=== PATIENT | female | born 1935 | race Native Hawaiian/Other Pacific Islander ===

== ENCOUNTER 2016-08-06 12:58 | Outpatient (CLI) | payer MEDICARE, OTHER | END 2016-08-06 12:59 | disposition home or self-care (01) | DX: N05.9 Unspecified nephritic syndrome with unspecified morphologic changes (principal); D70.9 Neutropenia, unspecified; D63.1 Anemia in chronic kidney disease ==

== ENCOUNTER 2016-09-05 10:46 | Outpatient (CLI) | payer MEDICARE, OTHER | END 2016-09-05 10:47 | disposition critical access hospital (66) | DX: R06.02 Shortness of breath (principal) | CPT/HCPCS: A0425; A0427 ==

== ENCOUNTER 2016-09-05 11:06 | Emergency (ER) | payer MEDICARE, OTHER ==
[2016-09-05] MEDS ORDERED: IPRATROPIUM/ALBUTEROL 3 ML NEB INH STA (13:30)
[2016-09-05] MEDS ORDERED: methylPREDNISolone SUCCINATE 125 MG/2 ML VIAL IVP STA (13:30)
[2016-09-05] MEDS ORDERED: methylPREDNISolone SUCCINATE 125 MG/2 ML VIAL IVP ONE (13:34)
[2016-09-05] MEDS ORDERED: DOXYCYCLINE 100 MG TABLET PO STA (15:49)
[2016-09-05] MEDS ORDERED: cefTRIAXone 1 GM in SODIUM CHLORIDE 0.9% MINIBAG 100 ML IV STA (15:49)
[2016-09-05] MEDS ORDERED: DOXYCYCLINE 100 MG TABLET PO ONE (15:51)
[2016-09-05] MEDS ORDERED: cefTRIAXone 1 GM VIAL ONE (15:52)
== END 2016-09-05 17:21 | disposition home or self-care (01) ==
DX: J44.1 Chronic obstructive pulmonary disease with (acute) exacerbation (principal); Z99.81 Dependence on supplemental oxygen; I10 Essential (primary) hypertension; E78.00 Pure hypercholesterolemia, unspecified; M19.90 Unspecified osteoarthritis, unspecified site; M06.9 Rheumatoid arthritis, unspecified; M10.9 Gout, unspecified; Z87.442 Personal history of urinary calculi; Z79.82 Long term (current) use of aspirin; Z87.891 Personal history of nicotine dependence
CPT/HCPCS: 36415; 71020; 80053; 83690; 85025; 87040; 94640; 96374; 96375; 99284; A9270; J7620

== ENCOUNTER 2016-09-19 08:00 | Outpatient (CLI) | payer MEDICARE, OTHER | END 2016-09-19 08:01 | disposition home or self-care (01) | DX: N05.9 Unspecified nephritic syndrome with unspecified morphologic changes (principal); I50.9 Heart failure, unspecified; M10.00 Idiopathic gout, unspecified site ==

== ENCOUNTER 2016-11-27 14:25 | Outpatient (CLI) | payer MEDICARE, OTHER ==
[2016-11-27 18:53] LABS: HCT - HEMATOCRIT 32.9 % (37.0-47.0); RED BLOOD COUNT 3.12 10^6/uL (4.20-5.40)
[2016-11-27 18:55] LABS: HGB - HEMOGLOBIN 10.7 g/dL (12.0-16.0); MEAN CORPUSCULAR HEMOGLOBIN 34.4 pg (27.0-31.0); MEAN CORPUSCULAR HGB CONC 32.5 g/dL (32.0-36.0); MEAN CORPUSCULAR VOLUME 105.6 fL (81.0-99.0); MEAN PLATELET VOLUME 9.8 fL (7.9-10.8); RED CELL DISTRIBUTION WIDTH 16.9 % (12.0-15.0); WHITE BLOOD COUNT 15.3 x10^3/uL (4.8-10.8)
[2016-11-27 19:15] LABS: CALCIUM 7.1 mg/dL (8.5-10.3); CREATININE 3.2 mg/dL (0.4-1.0); POTASSIUM 4.3 mmol/L (3.5-5.0)
== END 2016-11-27 14:26 | disposition home or self-care (01) ==
LOC: LAB.WCP 14:25
PROVIDERS: ATTEND Internal Medicine Nephrology
DX: N05.9 Unspecified nephritic syndrome with unspecified morphologic changes (principal); D50.0 Iron deficiency anemia secondary to blood loss (chronic)
CPT/HCPCS: 36415; 80048; 82728; 83540; 84466

== ENCOUNTER 2017-01-16 11:28 | Outpatient (CLI) | payer MEDICARE, OTHER ==
[2017-01-16 19:17] LABS: HCT - HEMATOCRIT 30.8 % (37.0-47.0); HGB - HEMOGLOBIN 10.1 g/dL (12.0-16.0); MEAN CORPUSCULAR HEMOGLOBIN 36.1 pg (27.0-31.0); MEAN CORPUSCULAR HGB CONC 32.6 g/dL (32.0-36.0); MEAN CORPUSCULAR VOLUME 110.6 fL (81.0-99.0); MEAN PLATELET VOLUME 8.8 fL (7.9-10.8); RED BLOOD COUNT 2.79 10^6/uL (4.20-5.40); RED CELL DISTRIBUTION WIDTH 14.9 % (12.0-15.0)
[2017-01-16 19:33] LABS: CALCIUM 8.2 mg/dL (8.5-10.3); CREATININE 2.6 mg/dL (0.4-1.0); POTASSIUM 3.6 mmol/L (3.5-5.0)
== END 2017-01-16 11:29 | disposition home or self-care (01) ==
LOC: LAB.WCP 11:28
PROVIDERS: ATTEND Internal Medicine Nephrology
DX: N05.9 Unspecified nephritic syndrome with unspecified morphologic changes (principal); D70.9 Neutropenia, unspecified
CPT/HCPCS: 36415; 80048

== ENCOUNTER 2017-01-23 11:17 | Outpatient (CLI) | payer MEDICARE, OTHER ==
--- NOTE | 2017-01-23 12:41 | XRAY Report ---
TWO-VIEW CHEST: 01/23/2017 CLINICAL INDICATION: Dyspnea, heart failure, stage IV kidney disease. COMPARISON: 09/05/2016 FINDINGS: Frontal and lateral views of the chest demonstrate a normal cardiac silhouette. Postopera tive changes in the left chest are stable. The lungs remain clear. No effusion or pneumothorax is p resent. Emphysematous changes are stable. IMPRESSION: NO EVIDENCE OF ACUTE CARDIOPULMONARY DISEASE. JOB #: [id number] EXT JOB #:[id number]
== END 2017-01-23 11:18 | disposition home or self-care (01) ==
LOC: DI 11:17
PROVIDERS: ATTEND Internal Medicine Nephrology
DX: I50.9 Heart failure, unspecified (principal)
CPT/HCPCS: 71020

== ENCOUNTER 2017-02-17 08:25 | Outpatient (CLI) | payer MEDICARE, OTHER ==
[2017-02-17 13:53] LABS: HGB - HEMOGLOBIN 10.4 g/dL (12.0-16.0); RED CELL DISTRIBUTION WIDTH 14.4 % (12.0-15.0)
[2017-02-17 13:54] LABS: HCT - HEMATOCRIT 31.1 % (37.0-47.0); MEAN CORPUSCULAR HEMOGLOBIN 35.9 pg (27.0-31.0); MEAN CORPUSCULAR HGB CONC 33.4 g/dL (32.0-36.0); MEAN CORPUSCULAR VOLUME 107.5 fL (81.0-99.0); MEAN PLATELET VOLUME 9.8 fL (7.9-10.8); RED BLOOD COUNT 2.9 10^6/uL (4.20-5.40)
[2017-02-17 14:35] LABS: CALCIUM 7.7 mg/dL (8.5-10.3); PHOSPHORUS 4.8 mg/dL (2.5-4.6); POTASSIUM 3.3 mmol/L (3.5-5.0)
== END 2017-02-17 08:26 | disposition home or self-care (01) ==
LOC: LAB.WCP 08:25
PROVIDERS: ATTEND Internal Medicine Nephrology
DX: N05.9 Unspecified nephritic syndrome with unspecified morphologic changes (principal); I50.9 Heart failure, unspecified; D70.9 Neutropenia, unspecified; D63.1 Anemia in chronic kidney disease; B19.10 Unspecified viral hepatitis B without hepatic coma; E83.30 Disorder of phosphorus metabolism, unspecified
CPT/HCPCS: 36415; 80048; 83880; 83970; 84100; 86317; 86704; 86803; 87340

== ENCOUNTER 2017-03-11 08:00 | Outpatient (CLI) | payer MEDICARE, OTHER | END 2017-03-11 08:01 | disposition home or self-care (01) | LOC: LAB.WCP 08:00 | PROVIDERS: ATTEND Physician Assistant Medical | DX: N93.9 Abnormal uterine and vaginal bleeding, unspecified (principal); N39.0 Urinary tract infection, site not specified | CPT/HCPCS: 84300; 87086 ==

== ENCOUNTER 2017-03-17 09:30 | Outpatient (CLI) | payer MEDICARE, OTHER ==
[2017-03-17 13:00] LABS: CALCIUM 7.8 mg/dL (8.5-10.3); CREATININE 2.7 mg/dL (0.4-1.0)
== END 2017-03-17 09:31 | disposition home or self-care (01) ==
LOC: LAB.WCP 09:30
PROVIDERS: ATTEND Internal Medicine Nephrology
DX: N05.9 Unspecified nephritic syndrome with unspecified morphologic changes (principal)
CPT/HCPCS: 36415; 80048

== ENCOUNTER 2017-06-29 08:00 | Outpatient (CLI) | payer MEDICARE, OTHER ==
[2017-06-29 18:55] LABS: HGB - HEMOGLOBIN 8.2 g/dL (12.0-16.0); MEAN CORPUSCULAR HEMOGLOBIN 34.7 pg (27.0-31.0); MEAN CORPUSCULAR HGB CONC 31.6 g/dL (32.0-36.0); MEAN PLATELET VOLUME 8.9 fL (7.9-10.8); RED BLOOD COUNT 2.37 10^6/uL (4.20-5.40); RED CELL DISTRIBUTION WIDTH 15.2 % (12.0-15.0); WHITE BLOOD COUNT 10.8 x10^3/uL (4.8-10.8)
[2017-06-29 18:57] LABS: MEAN CORPUSCULAR VOLUME 109.8 fL (81.0-99.0)
[2017-06-29 19:31] LABS: CALCIUM 7.4 mg/dL (8.5-10.3)
== END 2017-06-29 08:01 | disposition home or self-care (01) ==
LOC: LAB.WCP 08:00
PROVIDERS: ATTEND Internal Medicine Nephrology
DX: N05.9 Unspecified nephritic syndrome with unspecified morphologic changes (principal); D70.9 Neutropenia, unspecified; D63.1 Anemia in chronic kidney disease
CPT/HCPCS: 36415; 80048

== ENCOUNTER 2017-08-13 12:41 | Emergency (ER) | payer MEDICARE, OTHER ==
--- NOTE | 2017-08-13 13:26 | ED Physician Documentation ---
PD HPI DYSPNEA - Stated complaint Stated Complaint: SOA - History obtained from History obtained from: Patient - History of Present Illness Timing - onset: How many days ago (She has had several days of progressive dyspnea, general weakness and upon pointed questioning also states some dark soft stools. She has a history of COPD and anemia. She thought she was having some exacerbation of her COPD and noticed a significant wheezing and trouble breathing this morning. She improved en route by EMS with a nebulizer treatment. She still has general weakness however.) Timing - onset during: Light activity Timing - duration: Days Timing - details: Gradual onset, Still present Inciting event(s): No: Out of meds, URI Improved by: O2, Inhaler/neb Worsened by: Exertion. No: Laying flat, Coughing Associated symptoms: Wheezing. No: Fever, Cough, Chest pain / discomfort, Bilateral edema Similar symptoms before: Diagnosis (COPD) Recently seen: Not recently seen Review of Systems Constitutional: denies: Fever, Chills, Myalgias Nose: denies: Rhinorrhea / runny nose, Congestion Throat: denies: Sore throat Cardiac: denies: Chest pain / pressure, Palpitations, Pedal edema, Calf pain Respiratory: reports: Dyspnea, Cough, Wheezing GI: reports: Diarrhea, Bloody / black stool. denies: Abdominal Pain, Nausea, Vomiting, Hematemesis : denies: Dysuria, Frequency Skin: denies: Rash, Lesions Musculoskeletal: denies: Neck pain, Back pain Neurologic: reports: Generalized weakness, Near syncope (yesterday and today, posturally). 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 Cardiovascular: AAA, Other HEENT: Cataracts - Present Medications Home Medications: Ambulatory Orders Medication Instructions Recorded Confirmed Albuterol 2.5 mg INH Q4H PRN 08/13/17 08/13/17 Albuterol Sulfate [Proair Hfa 1 - 2 puffs INH Q4H PRN 08/13/17 08/13/17 Inhaler] Allopurinol [Allopurinol] 150 mg PO QPM 08/13/17 08/13/17 Ascorbic Acid 500 mg PO DAILY 08/13/17 08/13/17 Aspirin [Aspirin EC] 162 mg PO DAILY 08/13/17 08/13/17 Felodipine [Felodipine ER] 5 mg PO 1200 08/13/17 08/13/17 Furosemide 40 mg PO 1400 08/13/17 08/13/17 Furosemide [Lasix] 60 mg PO 0800 08/13/17 08/13/17 Ipratropium/Albuterol Sulfate 3 ml INH QID 08/13/17 08/13/17 [Iprat-Albut 0.5-3(2.5) mg/3 ml] Latanoprost [Xalatan] 1 drops EACHEYE QPM 08/13/17 08/13/17 Potassium Chloride [Micro-K] 10 meq PO 0800 08/13/17 08/13/17 Simvastatin [Simvastatin] 20 mg PO QPM 08/13/17 08/13/17 Timolol 0.5% Ophth Drops [Timoptic 1 drops EACHEYE BID 08/13/17 08/13/17 0.5% Ophth Drops] predniSONE [Prednisone] 10 mg PO DAILYWM 08/13/17 08/13/17 - Allergies Allergies/Adverse Reactions: Allergies Allergy/AdvReac Type Severity Reaction Status Date / Time amoxicillin trihydrate * Allergy unknown Verified 08/13/17 13:32 [From Trimox] Penicillins Allergy Hives Verified 08/13/17 13:32 - Social History Does the pt smoke?: No Smoking Status: Former smoker Does the pt drink ETOH?: Yes Does the pt have substance abuse?: No - Immunizations Immunizations are current?: No Immunizations: TDAP >10years/unknown - POLST Patient has POLST: No PD ED PE NORMAL - Vitals Vital signs reviewed: Yes (Low BP initially) - General General: Alert and oriented X 3, No acute distress, Well developed/nourished - HEENT HEENT: Ears normal, Pharynx benign - Neck Neck: Supple, no meningeal sign, No adenopathy - Cardiac Cardiac: RRR, No murmur - Respiratory Respiratory: Clear bilaterally - Abdomen Abdomen: Normal bowel sounds, Soft, Non tender, Non distended, No organomegaly - Female Female : Deferred - Rectal Rectal: Other (Soft stool in the vault, dark colored/black, which is markedly guiac positive. ) - Back Back: No CVA TTP - Derm Derm: Normal color - Extremities Extremities: No deformity, No tenderness to palpate - Neuro Neuro: Alert and oriented X 3, No motor deficit, Normal speech Eye Opening: Spontaneous Motor: Obeys Commands Verbal: Oriented GCS Score: 15 - Psych Psych: Normal mood Results - Vitals Vitals: Vital Signs - 24 hr 08/13/17 08/13/17 08/13/17 12:41 15:18 16:17 Temperature 36.5 C 36.4 C L Heart Rate 86 81 83 Respiratory 24 25 H 20 Rate Blood Pressure 71/53 L 72/52 L 85/62 L O2 Saturation 100 100 08/13/17 08/13/17 08/13/17 16:24 16:26 16:31 Temperature 36.4 C L 36.4 C L Heart Rate 83 82 86 Respiratory 24 20 21 Rate Blood Pressure 85/62 L 85/62 L 102/85 H O2 Saturation 100 08/13/17 08/13/17 08/13/17 16:36 16:44 17:32 Temperature 37.1 C 36.7 C 36.9 C Heart Rate 83 82 88 Respiratory 23 24 21 Rate Blood Pressure 89/70 L 109/73 95/65 O2 Saturation 08/13/17 08/13/17 17:40 17:45 Temperature 36.7 C 36.7 C Heart Rate 91 Respiratory 23 Rate Blood Pressure 103/89 H 115/93 H O2 Saturation Oxygen O2 Source [Without Activity] Nasal cannula O2 Source Nasal cannula Oxygen Flow Rate 2 - Labs Labs: Laboratory Tests 08/13/17 08/13/17 08/13/17 13:40 13:40 13:40 WBC 12.6 H RBC 1.19 L Hgb 3.8 L* Hct 12.1 L* MCV 101.2 H MCH 32.3 H MCHC 31.9 L RDW 17.9 H Plt Count 330 MPV 8.9 Neut # 11.0 H Lymph # 0.7 L [place] # 0.7 Eos # 0.0 Baso # 0.1 Absolute Nucleated RBC 0.42 Nucleated RBC % 3.4 Manual Slide Review Indicated RBC Morph Micro Appear 1+ HYPOCHROMASIA Sodium 136 Potassium 3.5 Chloride 98 L Carbon Dioxide 23 Anion Gap 15.0 H BUN 93 H* Creatinine 2.6 H Estimated GFR (MDRD) 18 L Glucose 112 H Lactic Acid 2.0 Calcium 7.2 L Magnesium Total Bilirubin 0.5 AST 22 ALT 15 Alkaline Phosphatase 46 B-Natriuretic Peptide Total Protein 5.6 L Albumin 3.2 Globulin 2.4 Albumin/Globulin Ratio 1.3 Lipase 24 Blood Type Antibody Screen Crossmatch IS Only 08/13/17 08/13/17 08/13/17 13:46 14:48 14:48 WBC RBC Hgb Hct MCV MCH MCHC RDW Plt Count MPV Neut # Lymph # [place] # Eos # Baso # Absolute Nucleated RBC Nucleated RBC % Manual Slide Review RBC Morph Micro Appear Sodium Potassium Chloride Carbon Dioxide Anion Gap BUN Creatinine Estimated GFR (MDRD) Glucose Lactic Acid Calcium Magnesium 1.6 L Total Bilirubin AST ALT Alkaline Phosphatase B-Natriuretic Peptide 294 H Total Protein Albumin Globulin Albumin/Globulin Ratio Lipase Blood Type O POSITIVE Antibody Screen NEGATIVE Crossmatch IS Only See Detail 08/13/17 14:48 WBC RBC Hgb 4.0 L* Hct 13.0 L* MCV MCH MCHC RDW Plt Count MPV Neut # Lymph # [place] # Eos # Baso # Absolute Nucleated RBC Nucleated RBC % Manual Slide Review RBC Morph Micro Appear Sodium Potassium Chloride Carbon Dioxide Anion Gap BUN Creatinine Estimated GFR (MDRD) Glucose Lactic Acid Calcium Magnesium Total Bilirubin AST ALT Alkaline Phosphatase B-Natriuretic Peptide Total Protein Albumin Globulin Albumin/Globulin Ratio Lipase Blood Type Antibody Screen Crossmatch IS Only PD MEDICAL DECISION MAKING - ED course Complexity details: reviewed old records, reviewed results (She has profound anemia. Her hemoglobin is up 4 down from 8 a month ago and baseline around 8- 10. Her kidney function is creatinine 2.6 which is about at her baseline. She is guaiac positive stools. We will transfuse with blood. I did give a fluid bolus small amount to increase blood pressure but did want did not want to use up her available space with fluids but rather go with blood products that would help her more. Once the blood was hanging her blood pressure improved quite readily and is now 110 systolic. Her color is better and she is breathing comfortably. She also had been improved with the nebulizer treatment 2. RICU is full here and she will need transferring. [facility] did have space available in their ICU and Dr. Patterson accepted transfer. The patient is stable for transfer and will be transferred by ground ALS.), considered differential, d /w patient Departure - Departure Disposition: 02 Transfer Acute Care Hosp Clinical Impression: COPD exacerbation Dyspnea Qualifiers: Dyspnea type: shortness of breath Qualified Code(s): R06.02 - Shortness of breath Profound anemia Qualifiers: Anemia type: unspecified type Qualified Code(s): D64.9 - Anemia, unspecified GI bleeding Qualifiers: GI bleed type/associated pathology: unspecified gastrointestinal hemorrhage type Qualified Code(s): K92.2 - Gastrointestinal hemorrhage, unspecified Chronic renal insufficiency Qualifiers: Chronic kidney disease stage: unspecified stage Qualified Code(s): N18.9 - Chronic kidney disease, unspecified Condition: Stable Record reviewed to determine appropriate education?: Yes Discharge Date/Time: 08/13/17 17:50
[2017-08-13 14:03] LABS: BASOPHILS # (AUTO) 0.1 10^3/uL (0.0-0.1); BASOPHILS % (AUTO) 0.4 %; EOSINOPHILS % (AUTO) 0.3 %; LYMPHOCYTES # (AUTO) 0.7 10^3/uL (1.5-3.5); LYMPHOCYTES % (AUTO) 5.7 %; MEAN CORPUSCULAR HEMOGLOBIN 32.3 pg (27.0-31.0); MEAN CORPUSCULAR HGB CONC 31.9 g/dL (32.0-36.0); MEAN CORPUSCULAR VOLUME 101.2 fL (81.0-99.0); MEAN PLATELET VOLUME 8.9 fL (7.9-10.8); MONOCYTES # (AUTO) 0.7 10^3/uL (0.0-1.0); MONOCYTES % (AUTO) 5.7 %; NEUTROPHILS % (AUTO) 87.9 %; PLT - PLATELET COUNT 330 10^3/uL (130-450); RED BLOOD COUNT 1.19 10^6/uL (4.20-5.40); RED CELL DISTRIBUTION WIDTH 17.9 % (12.0-15.0); WHITE BLOOD COUNT 12.6 x10^3/uL (4.8-10.8)
[2017-08-13 14:05] LABS: HGB - HEMOGLOBIN 3.8 g/dL (12.0-16.0)
[2017-08-13] MEDS ORDERED: IPRATROPIUM/ALBUTEROL 3 ML NEB INH STA (14:06)
[2017-08-13] MEDS ORDERED: SODIUM CHLORIDE 0.9% 500 ML IV ONE ×2 (14:23→15:04)
[2017-08-13 14:30] LABS: ALBUMIN 3.2 g/dL (3.2-5.5); ALBUMIN/GLOBULIN RATIO 1.3 (1.0-2.2); BILIRUBIN,TOTAL 0.5 mg/dL (0.2-1.0); CALCIUM 7.2 mg/dL (8.5-10.3); CREATININE 2.6 mg/dL (0.4-1.0); TOTAL PROTEIN 5.6 g/dL (6.7-8.2)
--- NOTE | 2017-08-13 14:36 | XRAY Report ---
EXAM: CHEST RADIOGRAPHY EXAM DATE: 08/13/2017 02:29 PM. CLINICAL HISTORY: Dyspnea. COMPARISON: 01/23/2017. TECHNIQUE: 1 view. FINDINGS: Lungs/Pleura: Mild chronic elevation of left hemidiaphragm with scarring in medial left base. Diffuse ly increased hazy prominence of lung markings. Possible tiny left effusion versus pleural thickening. No consolidation, definite effusion, or pneumothorax. Mediastinum: Mild cardiomegaly, probably unchanged. Mild vascular fullness. Other: Osteopenia, degenerative changes, surgical clips projecting over the left hilum. IMPRESSION: Increased hazy density, most likely mild edema. [facility] Referring Provider Line: [phone] SITE ID: [id number]
[2017-08-13] MEDS ORDERED: PANTOPRAZOLE 40 MG VIAL IVP STA (15:05)
[2017-08-13 17:46] VITALS: BP 115/93
== END 2017-08-13 17:50 | disposition short-term general hospital (02) ==
LOC: EDUNIT# → ED 12:41
DX: J44.1 Chronic obstructive pulmonary disease with (acute) exacerbation (principal); D64.9 Anemia, unspecified; K92.2 Gastrointestinal hemorrhage, unspecified; I12.9 Hypertensive chronic kidney disease with stage 1 through stage 4 chronic kidney disease, or unspecified chronic kidney disease; N18.9 Chronic kidney disease, unspecified; R19.5 Other fecal abnormalities; R91.8 Other nonspecific abnormal finding of lung field; R03.1 Nonspecific low blood-pressure reading; Z79.82 Long term (current) use of aspirin; Z79.51 Long term (current) use of inhaled steroids; Z79.52 Long term (current) use of systemic steroids; Z87.891 Personal history of nicotine dependence
CPT/HCPCS: 36415; 36430; 71045; 80053; 83605; 83690; 83735; 83880; 85014; 85018; 85025; 86850; 86900; 86901; 86920; 96361; 96374; 99284; J7620; P9016

== ENCOUNTER 2017-08-13 17:09 | Outpatient (CLI) | payer MEDICARE, OTHER | END 2017-08-13 17:10 | disposition critical access hospital (66) | LOC: EMS 17:09 | PROVIDERS: ATTEND Surgery | DX: R06.00 Dyspnea, unspecified (principal); R07.9 Chest pain, unspecified | CPT/HCPCS: A0425; A0427 ==

== ENCOUNTER 2017-08-13 17:51 | Outpatient (CLI) | payer MEDICARE, OTHER | END 2017-08-13 17:52 | disposition short-term general hospital (02) | LOC: EMS 17:51 | PROVIDERS: ATTEND Surgery | DX: K92.2 Gastrointestinal hemorrhage, unspecified (principal); D64.9 Anemia, unspecified; J44.9 Chronic obstructive pulmonary disease, unspecified; R06.00 Dyspnea, unspecified | CPT/HCPCS: A0425; A0426 ==

== ENCOUNTER 2017-09-21 08:00 | Outpatient (CLI) | payer MEDICARE, OTHER ==
[2017-09-21 19:24] LABS: BASOPHILS # (AUTO) 0.1 10^3/uL (0.0-0.1); BASOPHILS % (AUTO) 0.8 %; EOSINOPHILS # (AUTO) 0.2 10^3/uL (0.0-0.7); EOSINOPHILS % (AUTO) 1.2 %; HGB - HEMOGLOBIN 9.9 g/dL (12.0-16.0); LYMPHOCYTES % (AUTO) 7.4 %; MEAN CORPUSCULAR HEMOGLOBIN 29.6 pg (27.0-31.0); MEAN CORPUSCULAR HGB CONC 31.6 g/dL (32.0-36.0); MEAN CORPUSCULAR VOLUME 93.7 fL (81.0-99.0); MEAN PLATELET VOLUME 9.3 fL (7.9-10.8); NEUTROPHILS # (AUTO) 11.5 10^3/uL (1.5-6.6); NEUTROPHILS % (AUTO) 83.6 %; PLT - PLATELET COUNT 269 10^3/uL (130-450); RED BLOOD COUNT 3.33 10^6/uL (4.20-5.40); RED CELL DISTRIBUTION WIDTH 21.5 % (12.0-15.0); WHITE BLOOD COUNT 13.8 x10^3/uL (4.8-10.8)
[2017-09-21 21:29] LABS: CALCIUM 6.8 mg/dL (8.5-10.3); CREATININE 3.1 mg/dL (0.4-1.0)
[2017-09-21 21:43] LABS: DIFFERENTIAL COMMENT MANUAL=AUTO DIFF; PLATELET ESTIMATE, MANUAL NORMAL (130-450,000) (NORMAL); PLATELET MORPHOLOGY 1+ LARGE PLATELETS (NORMAL)
== END 2017-09-21 08:01 ==
LOC: LAB.WCP 08:00
PROVIDERS: ATTEND Internal Medicine Nephrology
DX: N05.9 Unspecified nephritic syndrome with unspecified morphologic changes (principal); D70.9 Neutropenia, unspecified; D63.1 Anemia in chronic kidney disease
CPT/HCPCS: 36415; 80048; 85025

== ENCOUNTER 2017-10-19 07:59 | Emergency (ER) | payer MEDICARE, OTHER ==
[2017-10-19] MEDS ORDERED: oxyCOD/ACETAMIN 5 MG/325 MG TABLET PO STA (08:46)
[2017-10-19] MEDS ORDERED: DEXAMETHASONE 10 MG/ML VIAL PO STA (08:46)
--- NOTE | 2017-10-19 08:50 | ED Physician Documentation ---
History of Present Illness - Stated complaint Stated Complaint: RT HAND PX - Chief complaint Chief Complaint: Ext Problem - History obtained from History obtained from: Patient, Family - History of Present Illness Timing: Last night - Additonal information Additional information: 81-year-old female with oxygen dependent COPD, chronic renal failure and profound anemia as developed acute right wrist swelling and severe pain associated with this overnight. She last saw her primary care doctor about 2 days ago she is preparing to see the kidney doctor again at the end of this week and she is preparing to go on dialysis. She is down to 10 mg of prednisone per day. She does have a prior history of gout. She presents to the ED with her son and a dear friend. Review of Systems Constitutional: denies: Fever Nose: denies: Congestion Throat: denies: Sore throat Respiratory: reports: Dyspnea GI: denies: Nausea, Vomiting Musculoskeletal: reports: Joint pain, Joint swelling Neurologic: denies: Generalized weakness, Focal weakness, Numbness PD PAST MEDICAL HISTORY - Past Medical History Past Medical History: Yes Cardiovascular: Hypertension, High cholesterol, Valve disorder Respiratory: COPD, Pneumonia, Shortness of breath, Other Neuro: None Endocrine/Autoimmune: None GI: None : Kidney stones HEENT: Glaucoma Psych: Claustrophobia Musculoskeletal: Osteoarthritis, Rheumatoid arthritis, Gout Derm: None - Past Surgical History Past Surgical History: Yes 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, 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 Cardiovascular: AAA, Other HEENT: Cataracts - Present Medications Home Medications: Ambulatory Orders Medication Instructions Recorded Confirmed Albuterol 2.5 mg INH Q4H PRN 08/13/17 08/13/17 Albuterol Sulfate [Proair Hfa 1 - 2 puffs INH Q4H PRN 08/13/17 08/13/17 Inhaler] Allopurinol [Allopurinol] 150 mg PO QPM 08/13/17 08/13/17 Ascorbic Acid 500 mg PO DAILY 08/13/17 08/13/17 Aspirin [Aspirin EC] 162 mg PO DAILY 08/13/17 08/13/17 Felodipine [Felodipine ER] 5 mg PO 1200 08/13/17 08/13/17 Furosemide 40 mg PO 1400 08/13/17 08/13/17 Furosemide [Lasix] 60 mg PO 0800 08/13/17 08/13/17 Ipratropium/Albuterol Sulfate 3 ml INH QID 08/13/17 08/13/17 [Iprat-Albut 0.5-3(2.5) mg/3 ml] Latanoprost [Xalatan] 1 drops EACHEYE QPM 08/13/17 08/13/17 Potassium Chloride [Micro-K] 10 meq PO 0800 08/13/17 08/13/17 Simvastatin [Simvastatin] 20 mg PO QPM 08/13/17 08/13/17 Timolol 0.5% Ophth Drops [Timoptic 1 drops EACHEYE BID 08/13/17 08/13/17 0.5% Ophth Drops] predniSONE [Prednisone] 10 mg PO DAILYWM 08/13/17 08/13/17 oxyCODONE/ACET 5/325 [Percocet 5 1 each PO Q4-6H PRN #20 tablet 10/19/17 mg/325 mg] - Allergies Allergies/Adverse Reactions: Allergies Allergy/AdvReac Type Severity Reaction Status Date / Time amoxicillin trihydrate * Allergy unknown Verified 08/13/17 13:32 [From Trimox] Penicillins Allergy Hives Verified 08/13/17 13:32 - Social History Does the pt smoke?: No Smoking Status: Never smoker Does the pt drink ETOH?: Yes Does the pt have substance abuse?: No - Immunizations Immunizations are current?: No Immunizations: TDAP >10years/unknown - POLST Patient has POLST: No PD ED PE NORMAL - Vitals Vital signs reviewed: Yes (normal ) - General General: Alert and oriented X 3, Well developed/nourished, Other (The patient is on oxygen and has persed lip breathing. ) - HEENT HEENT: Atraumatic - Respiratory Respiratory: No respiratory distress - Derm Derm: Normal color, Warm and dry, Other (There is quite a bit of skin discoloration related to subcutaneous bleeding. ) - Extremities Extremities: Other (The right wrist is swollen red and tender consistent with gout. Does not look like cellulitis. ) - Neuro Neuro: No motor deficit, No sensory deficit Eye Opening: Spontaneous Motor: Obeys Commands Verbal: Oriented GCS Score: 15 - Psych Psych: Normal mood, Normal affect Results - Vitals Vitals: Vital Signs - 24 hr 10/19/17 10/19/17 08:03 10:24 Temperature 36.8 C 36.3 C L Heart Rate 88 65 Respiratory 18 20 Rate Blood Pressure 119/77 131/82 H O2 Saturation 100 100 Oxygen O2 Source [] Nasal cannula O2 Source Room air Oxygen Flow Rate 2 - Rads (name of study) right wrist Radiology: Prelim report reviewed (Impression: No fracture demonstrated. Moderate degenerative joint disease of the first carpal metacarpal joint. Degenerative joint disease of multiple visualized interphalangeal joints and the first and second metacarpal phalangeal joint. Widening of the navicular multangular joint which may be secondary to a ligament injury or degeneration. Chondrocalcinosis. Diffuse soft tissue swelling. Atherosclerosis of the radial artery.), EMP read indepedently, See rad report Procedures - Splint (location) right wrist Splint applied by: Tech Type of splint: Fiberglass, Volar cock up Other: Patient tolerated well, No complications, Neurovascular intact, Good alignment PD MEDICAL DECISION MAKING - ED course Complexity details: reviewed old records, reviewed results, re-evaluated patient , considered differential, d/w patient, d/w family ED course: 81-year-old female with complicated past medical history who was getting ready to have dialysis done has developed acute gout in her right wrist. She is administered Percocet for pain control and she is given a dose of dexamethasone. 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 She has had recent blood work done 2 days ago. Here in the ED she is treated symptomatically for gout with oxycodone and decadron. A splint is placed for comfort. 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
[2017-10-19] MEDS ORDERED: CHERRY SYRUP 10 ML UDC PO ONE (09:08)
--- NOTE | 2017-10-19 09:49 | XRAY Report ---
EXAM: RIGHT WRIST RADIOGRAPHY 4 VIEWS EXAM DATE: 10/19/2017. CLINICAL HISTORY: Pain and swelling. COMPARISON: None. TECHNIQUE: PA, oblique, lateral and navicular views. FINDINGS: Bones: No fracture demonstrated. Degenerative cyst proximal in the first metacarpal. Joints: Widening of the navicular-multangular joint. Moderate narrowing of the first carpal-metacarpa l joint. Narrowing and spurring of multiple visualized interphalangeal joints, and of the first and s econd metacarpal-phalangeal joints. Chondrocalcinosis, most pronounced in the region of the triangula r fibrocartilage. Soft Tissues: Mild diffuse swelling around the wrist. Calcification of the radial artery. IMPRESSION: No fracture demonstrated. Moderate degenerative joint disease of the first carpal-metacarpal joint. Degenerative joint disease of multiple visualized interphalangeal joints and the first and second metacarpal-phalangeal joint. Widening of the navicular-multangular joint which may be secondary to a ligament injury or degenerati on. Chondrocalcinosis. Diffuse soft tissue swelling. Atherosclerosis of the radial artery. [facility] Referring Provider Line: [phone] SITE ID: [id number]
[2017-10-19 10:24] VITALS: BP 131/82
== END 2017-10-19 10:38 | disposition home or self-care (01) ==
LOC: ED 07:59
DX: M10.331 Gout due to renal impairment, right wrist (principal); J44.9 Chronic obstructive pulmonary disease, unspecified; N18.9 Chronic kidney disease, unspecified; D64.9 Anemia, unspecified; I12.9 Hypertensive chronic kidney disease with stage 1 through stage 4 chronic kidney disease, or unspecified chronic kidney disease; I38 Endocarditis, valve unspecified; Z79.82 Long term (current) use of aspirin; Z79.51 Long term (current) use of inhaled steroids; Z79.899 Other long term (current) drug therapy; Z99.81 Dependence on supplemental oxygen
CPT/HCPCS: 29125; 73110; 99283; A9270

== ENCOUNTER 2017-10-28 14:00 | Emergency (ER) | payer MEDICARE, OTHER ==
--- NOTE | 2017-10-28 14:24 | ED Physician Documentation ---
PD HPI GI BLEED - Stated complaint Stated Complaint: RECTAL BLEEDING - Chief complaint Chief Complaint: Abd Pain - History obtained from History obtained from: Patient, Friend - History of Present Illness Timing - onset: Today (This is an 81-year-old woman with chronic renal failure, history of endovascular AAA repair. She has either resolved rectal or vaginal bleeding starting today. There is no associated abdominal pain, chest pain or trouble breathing with it. She is edematous but she says this is her baseline. She is not having dialysis yet but it sounds like she will be starting it soon via a right sided AV fistula that was placed a few weeks ago.) Review of Systems Ten Systems: 10 systems reviewed and negative Constitutional: denies: Fever, Chills Throat: reports: Reviewed and negative Cardiac: reports: Reviewed and negative Respiratory: reports: Reviewed and negative PD PAST MEDICAL HISTORY - Past Medical History Cardiovascular: Hypertension, High cholesterol, Valve disorder Respiratory: COPD, Pneumonia, Shortness of breath, Other Endocrine/Autoimmune: None GI: None : Kidney stones HEENT: Glaucoma Psych: Claustrophobia Musculoskeletal: Osteoarthritis, Rheumatoid arthritis, Gout Derm: None - Past Surgical History Past Surgical History: Yes 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, 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 Cardiovascular: AAA, Other HEENT: Cataracts - Present Medications Home Medications: Ambulatory Orders Medication Instructions Recorded Confirmed Albuterol 2.5 mg INH Q4H PRN 08/13/17 08/13/17 Albuterol Sulfate [Proair Hfa 1 - 2 puffs INH Q4H PRN 08/13/17 08/13/17 Inhaler] Allopurinol [Allopurinol] 150 mg PO QPM 08/13/17 08/13/17 Ascorbic Acid 500 mg PO DAILY 08/13/17 08/13/17 Aspirin [Aspirin EC] 162 mg PO DAILY 08/13/17 08/13/17 Felodipine [Felodipine ER] 5 mg PO 1200 08/13/17 08/13/17 Furosemide 40 mg PO 1400 08/13/17 08/13/17 Furosemide [Lasix] 60 mg PO 0800 08/13/17 08/13/17 Ipratropium/Albuterol Sulfate 3 ml INH QID 08/13/17 08/13/17 [Iprat-Albut 0.5-3(2.5) mg/3 ml] Latanoprost [Xalatan] 1 drops EACHEYE QPM 08/13/17 08/13/17 Potassium Chloride [Micro-K] 10 meq PO 0800 08/13/17 08/13/17 Simvastatin [Simvastatin] 20 mg PO QPM 08/13/17 08/13/17 Timolol 0.5% Ophth Drops [Timoptic 1 drops EACHEYE BID 08/13/17 08/13/17 0.5% Ophth Drops] predniSONE [Prednisone] 10 mg PO DAILYWM 08/13/17 08/13/17 oxyCODONE/ACET 5/325 [Percocet 5 1 each PO Q4-6H PRN #20 tablet 10/19/17 mg/325 mg] - Allergies Allergies/Adverse Reactions: Allergies Allergy/AdvReac Type Severity Reaction Status Date / Time amoxicillin trihydrate * Allergy unknown Verified 10/28/17 14:14 [From Trimox] Penicillins Allergy Hives Verified 10/28/17 14:14 - Social History Does the pt smoke?: No Smoking Status: Never smoker Does the pt drink ETOH?: Yes Does the pt have substance abuse?: No - Immunizations Immunizations are current?: No Immunizations: TDAP >10years/unknown - POLST Patient has POLST: No PD ED PE NORMAL - Vitals Vital signs reviewed: Yes - General General: Alert and oriented X 3, No acute distress - Neck Neck: Supple, no meningeal sign, No bony TTP - Cardiac Cardiac: RRR, No murmur - Respiratory Respiratory: No respiratory distress, Clear bilaterally - Abdomen Abdomen: Soft, Non tender - Rectal Rectal: Other (Small BRBPR, no vag bleed.) - Back Back: No CVA TTP, No spinal TTP - Derm Derm: Normal color, No rash - Extremities Extremities: No deformity (Right AC fistula with good thrill), Other (She appears hypervolemic with both pedal edema as well as hand edema.) - Neuro Neuro: Alert and oriented X 3, Normal speech - Psych Psych: Normal mood, Normal affect Results - Vitals Vitals: Vital Signs - 24 hr 10/28/17 14:09 Temperature 36.3 C L Heart Rate 93 Respiratory 20 Rate Blood Pressure 122/66 O2 Saturation 96 Oxygen O2 Source [Without Activity] Nasal cannula O2 Source Room air - Labs Labs: Laboratory Tests 10/28/17 10/28/17 10/28/17 14:25 14:25 14:25 WBC 14.3 H RBC 2.72 L Hgb 8.6 L Hct 26.1 L MCV 96.1 MCH 31.8 H MCHC 33.1 RDW 23.0 H Plt Count 216 MPV 8.3 Neut # Not Reportable Lymph # Not Reportable [place] # Not Reportable Eos # Not Reportable Baso # Not Reportable Absolute Nucleated RBC Not Reportable Total Counted 100 Band Neuts % (Manual) 0 Abnorm Lymph % (Manual) 0 Nucleated RBC % Not Reportable Neutrophils # (Manual) 12.9 H Lymphocytes # (Manual) 0.7 L Monocytes # (Manual) 0.6 Eosinophils # (Manual) 0.1 Basophils # (Manual) 0.0 Nucleated RBCs 1 Differential Comment MANUAL DIFFERENTIAL Manual Slide Review Indicated Platelet Estimate NORMAL (130-450,000) Platelet Morphology NORMAL APPEARANCE RBC Morph Micro Appear 1+ TARGET CELLS PT 10.5 INR 0.9 Sodium 136 Potassium 3.2 L Chloride 98 L Carbon Dioxide 23 Anion Gap 15.0 H BUN 97 H* Creatinine 3.2 H Estimated GFR (MDRD) 14 L Glucose 114 H Calcium 6.1 L* Total Bilirubin 0.7 AST 28 ALT 18 Alkaline Phosphatase 68 Total Protein 6.1 L Albumin 3.4 Globulin 2.7 Albumin/Globulin Ratio 1.3 Lipase 39 PD MEDICAL DECISION MAKING - ED course ED course: 81-year-old woman with chronic renal failure presents with evidence of fluid overload and lower GI bleeding. Labs are remarkable for hemoglobin of 8.6, her usual is 10 or 11 and BUN in the 90s with critically low calcium which is repleted IV. Spoke with Dr. Downey here for potential admission but she felt given her tenuous renal status should be transferred to a higher level of care and hospitalist at [facility] was paged at 3:20 PM. She was accepted by Dr. Hobson at [facility] at 3:40 PM and cobras were completed. The patient consented to transfer. Departure - Departure Disposition: 02 Transfer Acute Care Hosp Clinical Impression: CKD (chronic kidney disease) stage 4, GFR 15-29 ml/min, Hypocalcemia GI bleeding Qualifiers: GI bleed type/associated pathology: unspecified gastrointestinal hemorrhage type Qualified Code(s): K92.2 - Gastrointestinal hemorrhage, unspecified Condition: Serious
[2017-10-28 14:45] LABS: BASOPHILS % (AUTO) 0.3 %; EOSINOPHILS % (AUTO) 0.5 %; HGB - HEMOGLOBIN 8.6 g/dL (12.0-16.0); LYMPHOCYTES % (AUTO) 5.6 %; MEAN CORPUSCULAR HEMOGLOBIN 31.8 pg (27.0-31.0); MEAN CORPUSCULAR HGB CONC 33.1 g/dL (32.0-36.0); MEAN CORPUSCULAR VOLUME 96.1 fL (81.0-99.0); MEAN PLATELET VOLUME 8.3 fL (7.9-10.8); MONOCYTES % (AUTO) 7.1 %; NEUTROPHILS % (AUTO) 86.5 %; PLT - PLATELET COUNT 216 10^3/uL (130-450); RED BLOOD COUNT 2.72 10^6/uL (4.20-5.40); WHITE BLOOD COUNT 14.3 x10^3/uL (4.8-10.8)
[2017-10-28 14:50] LABS: ABNORMAL LYMPHS % (MANUAL) 0 %; BAND NEUTROPHILS % (MANUAL) 0 %
[2017-10-28 14:54] LABS: INR 0.9 (0.8-1.2); PT - PROTHROMBIN TIME 10.5 secs (9.9-12.6)
[2017-10-28 15:03] LABS: ALBUMIN 3.4 g/dL (3.2-5.5); ALBUMIN/GLOBULIN RATIO 1.3 (1.0-2.2); BILIRUBIN,TOTAL 0.7 mg/dL (0.2-1.0); CREATININE 3.2 mg/dL (0.4-1.0); TOTAL PROTEIN 6.1 g/dL (6.7-8.2)
[2017-10-28 15:05] LABS: CALCIUM 6.1 mg/dL (8.5-10.3); EOSINOPHILS # (MANUAL) 0.1 10^3/uL (0-0.7); LYMPHOCYTES # (MANUAL) 0.7 10^3/uL (1.5-3.5); LYMPHOCYTES % (MANUAL) 5 %; MONOCYTES # (MANUAL) 0.6 10^3/uL (0.0-1.0); NEUTROPHILS # (MANUAL) 12.9 10^3/uL (1.5-6.6); NEUTROPHILS % (MANUAL) 90 %
[2017-10-28 15:08] LABS: DIFFERENTIAL COMMENT MANUAL DIFFERENTIAL; PLATELET ESTIMATE, MANUAL NORMAL (130-450,000) (NORMAL); PLATELET MORPHOLOGY NORMAL APPEARANCE (NORMAL)
[2017-10-28] MEDS ORDERED: CALCIUM GLUCONATE 1000 MG/10 ML VIAL IVP STA (15:08)
[2017-10-28] MEDS: CALCIUM GLUCONATE 1,000 MG in SODIUM CHLORIDE 0.9% 50 ML IV ONE (15:43)
[2017-10-28 16:31] VITALS: BP 113/84
== END 2017-10-28 17:23 | disposition short-term general hospital (02) ==
LOC: ED 14:00
DX: I12.9 Hypertensive chronic kidney disease with stage 1 through stage 4 chronic kidney disease, or unspecified chronic kidney disease (principal); N18.4 Chronic kidney disease, stage 4 (severe); E83.51 Hypocalcemia; K92.2 Gastrointestinal hemorrhage, unspecified; J44.9 Chronic obstructive pulmonary disease, unspecified; M06.9 Rheumatoid arthritis, unspecified; M19.90 Unspecified osteoarthritis, unspecified site; M10.9 Gout, unspecified; E78.00 Pure hypercholesterolemia, unspecified; Z79.82 Long term (current) use of aspirin
CPT/HCPCS: 36415; 80053; 83690; 85025; 85610; 86850; 86900; 86901; 96365; 99284; 99285

== ENCOUNTER 2017-10-28 17:10 | Outpatient (CLI) | payer MEDICARE, OTHER | END 2017-10-28 17:11 | disposition short-term general hospital (02) | LOC: EMS 17:10 | PROVIDERS: ATTEND Surgery | DX: K92.2 Gastrointestinal hemorrhage, unspecified (principal); N19 Unspecified kidney failure | CPT/HCPCS: A0170; A0425; A0426 ==

== ENCOUNTER 2018-06-17 14:55 | Outpatient (CLI) | payer MEDICARE | END 2018-06-17 14:56 | disposition short-term general hospital (02) | LOC: EMS 14:55 | PROVIDERS: ATTEND Surgery | DX: I46.9 Cardiac arrest, cause unspecified (principal) | CPT/HCPCS: A0425; A0433 ==